=== PATIENT | female | born 1960 | race Caucasian/White ===

== ENCOUNTER → 2020-07-10 | Outpatient (CLI) | payer OTHER | END | disposition home or self-care (01) | LOC: US 07:25 | PROVIDERS: ATTEND Family Medicine | DX: K76.0 Fatty (change of) liver, not elsewhere classified (principal) ==

== ENCOUNTER 2020-11-06 18:40 | Emergency (ER) | payer OTHER ==
[2020-11-07] MEDS ORDERED: ATENOLOL-CHLOR1 EAC1 PO (08:28)
[2020-11-07] MEDS ORDERED: AMBIEN10 M1 PO (08:29)
[2020-11-07] MEDS ORDERED: FLOMAX0.4 MG PO (08:29)
[2020-11-07] MEDS ORDERED: ATIVAN0.5 MG PO (08:30)
== END 2020-11-06 20:06 | disposition left against medical advice (07) ==
LOC: ED 18:40
DX: S61.411A Laceration without foreign body of right hand, initial encounter (principal); Z53.21 Procedure and treatment not carried out due to patient leaving prior to being seen by health care provider; X78.0XXA Intentional self-harm by sharp glass, initial encounter; Y93.89 Activity, other specified; Y92.89 Other specified places as the place of occurrence of the external cause; Y99.8 Other external cause status

== ENCOUNTER 2020-11-07 08:22 | Emergency (ER) | payer OTHER ==
[~2020-11-07] VITALS: Ht 165.1 cm; Wt 61.2 kg
[2020-11-07] MEDS ORDERED: ATENOLOL-CHLOR1 EAC1 PO (08:28)
[2020-11-07] MEDS ORDERED: AMBIEN10 M1 PO (08:29)
[2020-11-07] MEDS ORDERED: FLOMAX0.4 MG PO (08:29)
[2020-11-07] MEDS ORDERED: ATIVAN0.5 MG PO (08:30)
== END 2020-11-07 09:21 | disposition home or self-care (01) ==
LOC: ED 08:22
DX: S61.210A Laceration without foreign body of right index finger without damage to nail, initial encounter (principal); W25.XXXA Contact with sharp glass, initial encounter; Y93.89 Activity, other specified; Y92.89 Other specified places as the place of occurrence of the external cause; Y99.8 Other external cause status

== ENCOUNTER 2022-10-05 15:47 | Emergency (ER) | payer OTHER ==
[~2022-10-05] VITALS: Ht 162.5 cm; Wt 62.6 kg
[~2022-10-05 15:47] MED LIST: AMBIEN10 M1 PO; ATENOLOL-CHLOR1 EAC1 PO; ATIVAN0.5 MG PO; FLOMAX0.4 MG PO
[2022-10-05] MEDS ORDERED: CHLORTHALIDONE25 MG PO (16:05)
[2022-10-05 16:30] LABS: BASO # 0.1 10*3/uL (0.0-0.1); BASO % 0.9 % (0.0-1.0); EOS # 0.2 10*3/uL (0.0-0.4); EOS % 3.2 % (1.0-4.0); HEMATOCRIT 39.5 % (37.0-47.0); LYMPH # 1.4 10*3/uL (1.3-4.4); LYMPH % 20.6 % (27.0-41.0); MEAN CELL VOLUME 85.1 fl (81.0-99.0); MEAN CORPUSCULAR HGB CONC 35.2 g/dl (33.0-37.0); MEAN PLATELET VOLUME 9.1 fl (9.6-12.3); MONO # 0.7 10*3/uL (0.1-1.0); MONO % 9.9 % (3.0-9.0); NEUT # 4.3 10*3/uL (2.3-7.9); NEUT % 65.1 % (47.0-73.0); PLATELET COUNT AUTOMATED 217 10*3/uL (130-400); RED BLOOD COUNT 4.64 10*6/uL (4.10-5.10); RED CELL DISTRI WIDTH 12.6 % (0-14.5); WHITE BLOOD COUNT 6.6 10*3/uL (4.8-10.8)
[2022-10-05 16:52] LABS: POTASSIUM 2.5 mmol/L (3.4-5.1)
== END 2022-10-05 16:51 | disposition short-term general hospital (02) ==
LOC: ED 15:47
PROVIDERS: Nurse Practitioner Family
DX: T63.331A Toxic effect of venom of brown recluse spider, accidental (unintentional), initial encounter (principal); Z98.890 Other specified postprocedural states; Z87.442 Personal history of urinary calculi; Y92.89 Other specified places as the place of occurrence of the external cause